=== PATIENT | female | born 1995 | race Two or more races ===

== ENCOUNTER 2020-08-14 02:16 | Emergency (ER) | payer SELFPAY ==
[~2020-08-14] VITALS: Ht 149.9 cm; Wt 83.9 kg
[2020-08-14 02:30] VITALS: BP 122/89
== END 2020-08-14 07:04 | disposition home or self-care (01) ==
LOC: ER 02:20
DX: S09.90XA Unspecified injury of head, initial encounter (principal); S00.03XA Contusion of scalp, initial encounter; W01.0XXA Fall on same level from slipping, tripping and stumbling without subsequent striking against object, initial encounter; Y93.89 Activity, other specified; Y92.091 Bathroom in other non-institutional residence as the place of occurrence of the external cause; Y99.8 Other external cause status
CPT/HCPCS: 70450; 70486; 72125